=== PATIENT | female | born 1970 | race Caucasian/White ===

== ENCOUNTER 2016-10-13 21:46 | Emergency (ER) | payer BC, OTHER ==
[~2016-10-13] VITALS: Ht 170.2 cm; Wt 65.2 kg
[~2016-10-13 21:46] MED LIST: AMPH15CA7 PO; DIME1CAP2 PO; GABA1CAP5 PO; MAGNTAB10 PO; SERT100T PO; SERT50TA PO; VIT; VITBC PO; [UNRECOGNIZED DRUG - CODE] PO
[2016-10-13 21:49] VITALS: TEMP 37.3; Ht 170.2 cm; Wt 65.2 kg
[2016-10-13] MEDS ORDERED: ONDANSETRON INJ 2 MG/ML 2 ML VIAL IV STA (22:17)
[2016-10-13] MEDS ORDERED: KETOROLAC TROMETHAMINE 30 MG/ML VIAL IV STA (22:17)
[2016-10-13] MEDS ORDERED: SODIUM CHLORIDE 0.9% 1000ML 1,000 ML IV STA (22:17)
[2016-10-13] MEDS ORDERED: VLM5CL PO (22:37)
[2016-10-13] MEDS ORDERED: ZOLP10TA6 PO (22:37)
[2016-10-13] MEDS ORDERED: NRN400 PO (22:37)
[2016-10-13] MEDS ORDERED: ZLF/100 PO (22:37)
[2016-10-13] MEDS ORDERED: CHOL2000 PO (22:39)
[2016-10-13] MEDS ORDERED: CYAN10005 PO (22:39)
[2016-10-13] MEDS ORDERED: AMPH20TA2 PO ×2 (22:41)
[2016-10-13 23:03] LABS: HEMATOCRIT 37.7 % (37-47); MEAN CELL VOLUME 93.3 fL (80-100); MEAN CORPUSCULAR HEMOGLOBIN 32.4 pg (25-34); MEAN CORPUSCULAR HGB CONC 34.7 g/dl (32-36); MEAN PLATELET VOLUME 9.5 fL (7.4-10.4); PLATELET COUNT 223 K/uL (130-400); RED BLOOD COUNT 4.04 M/uL (4.2-5.4); WHITE BLOOD COUNT 8.56 K/uL (4.8-10.8)
[2016-10-13 23:07] LABS: URINE APPEARANCE CLOUDY (CLEAR); URINE BILIRUBIN NEG (NEG); URINE COLOR DK YELLOW; URINE NITRITE NEG (NEG); URINE PH 5.5 (4.5-7.5); URINE SPECIFIC GRAVITY 1.015 (1.000-1.030); UROBILINOGEN NEG (NEG)
[2016-10-13 23:15] LABS: MANUAL MICROSCOPIC REQUIRED? NO; REVIEW REQ? NO
[2016-10-13] MEDS ORDERED: CEFTRIAXONE SOD INJ 1 GM ADDVIAL IV STA (23:18)
[2016-10-13 23:25] LABS: BUN/CREATININE RATIO 16.3 (10-20); CREATININE 0.92 mg/dl (0.60-1.20); POTASSIUM 3.9 mmol/L (3.5-5.1); PREG INTERNAL NEGATIVE QC NEG CLEAR BACKGROUND; PREG INTERNAL POSITIVE QC POS CONTROL LINE
[2016-10-13 23:35] LABS: BASO % 0.1 %; BASO ABS # 0.01 K/uL (0-0.2); COMPLETE YES; EOS % 0.9 %; IG% 0.1 %; LYMPH % 12.1 %; LYMPH ABS # 1.04 K/uL (1.2-3.4); MONO % 8.4 %; NEUT % 78.4 %
[2016-10-14] MEDS ORDERED: CEPH500C2 PO (00:25)
[2016-10-14] MEDS ORDERED: CEPHALEXIN 500MG HOME PACK 1 EA BTL PO ONE (00:30)
--- NOTE | 2016-10-14 00:52 | EMERGENCY ROOM VISIT NOTE ---
History Report prepared by Vic: Tatyana Santo Under the Supervision of: Dr. Devan Haq D.O. First contact with patient: 21:53 Chief Complaint: URINARY SYMPTOMS Stated Complaint: FEVER,BACK PAIN,POSSIBLE UTI History of Present Illness The patient is a 46 year old female who presents to the Emergency Room with complaints of worsening urinary symptoms that started 2-3 days ago. The patient is experiencing intermittent cramping back pain and foul-smelling urine. She is also experiencing a fever that was first noticed around 1600 today and was recorded at 100. She denies pain or burning with urination, increased urinary frequency, increased urinary urgency. The patient developed left upper quadrant abdominal pain earlier today after taking 400 mg of ibuprofen. She has increased her fluid intake, but still felt like a UTI was coming on so she figured that she should get evaluated. The patient has a history of UTIs and pyelonephritis. She follows regularly with urology. The patient adds that when she had a UTI last July, there were some resistant bacteria present. She is unsure of if she has a history of kidney stones because she was told that she had one when she had her cholecystectomy done, but urology wasn't sure if that was true. Source of History: patient Onset: 2-3 days ago Quality: other (urinary symptoms) Timing: worsening Associated Symptoms: + abdominal pain (LUQ), + back pain (intermittent cramping), + fevers, + urinary symptoms (foul-smelling urine) Note: no pain or burning with urination, no increased urinary frequency, no increased urinary urgency Review of Systems See HPI for pertinent positives & negatives. A total of 10 systems reviewed and were otherwise negative. Past Medical & Surgical Medical Problems: (1) Cholecystitis (2) Fever (3) History of recurrent UTIs (4) Migraine headache (5) Multiple sclerosis (6) UTI (urinary tract infection) (7) Vertigo Surgical Problems: (1) History of appendectomy (2) History of cholecystectomy Family History FH: cancer FH: heart disease FH: hypertension Social History Smoking Status: Never Smoker Alcohol Use: none Marital Status: Occupation Status: unemployed Current/Historical Medications Scheduled Cephalexin Monohydrate (Keflex), 500 MG PO QID Cholecalciferol (Vitamin D3), 2,000 INTER.UNIT PO TID Cyanocobalamin (Vitamin B-12), 1,000 MCG PO DAILY Dimethyl Fumarate (Tecfidera), 240 MG PO BID Gabapentin (Gabapentin), 400 MG PO TID Magnesium Oxide (Mg Supplement (Mag-200), 250 MG PO TID Sertraline HCl (Sertraline HCl), 100 MG PO HS Vitamin B Complex (Vitamin B Complex), 1 TAB PO DAILY Scheduled PRN Amphetamine-Dextroamphetamine 20MG (Adderall 20MG), 20 MG PO QAM PRN for Focus Amphetamine-Dextroamphetamine 20MG (Adderall 20MG), 10 MG PO ATERNOON PRN for Focus Diazepam (Diazepam), 5 MG PO UD PRN for Migraine Zolpidem Tartrate (Zolpidem Tartrate), 10 MG PO HS PRN for Sleep Allergies Coded Allergies: Erythromycin (Unverified Adverse Reaction, Severe, GI SYMPTOMS, 07/16/15) Physical Exam Vital Signs Date Time Temp Pulse Resp B/P Pulse Ox O2 Delivery O2 Flow Rate FiO2 10/14/16 01:04 75 20 103/50 99 10/14/16 00:02 71 20 104/67 98 Room Air 10/13/16 21:49 37.3 107 16 102/38 97 Room Air Physical Exam GENERAL: Patient is awake, alert, and in no acute distress. Patient is resting comfortably and showing no signs of anxiety EYES: The conjunctivae are clear. The pupils are round and reactive. EARS, NOSE, MOUTH AND THROAT: The nose is without any evidence of any deformity. Mucous membranes are moist tongue is midline NECK: The neck is nontender and supple. RESPIRATORY: Normal respiratory effort is noted there is no evidence of wheezing rhonchi or rales CARDIOVASCULAR: Regular rate and rhythm noted there no murmurs rubs or gallops normal S1 normal S2 GASTROINTESTINAL: The abdomen is soft. Bowel sounds are present in all quadrants. Abdomen is tender in right upper quadrant. No guarding or rigidity noted. BACK: No midline tenderness or or step-off noted. Mild right CVA tenderness to percussion. MUSCULOSKELETAL/EXTREMITIES: There is no evidence of gross deformity full range of motion is noted in the hips and shoulders SKIN: There is no obvious evidence of any rash. There are no petechiae, pallor or cyanosis noted. NEUROLOGIC: Patient is awake alert and oriented x3 strength is symmetric patellar reflexes are 2+ bilaterally Medical Decision & Procedures ER Provider Diagnostic Interpretation: Radiology results as stated below per my review and radiologist interpretation: KUB X-RAY MY IMPRESSION: Nonspecific bowel gas pattern. Constipation noted in right colon. No free air. No signs of obstruction. Ultrasound of the retroperitoneum was obtained in the emergency department. The report was reviewed. Preliminary Findings Only See Final Report For Complete Findings US RENAL: Right kidney 12.8 cm in length. Left kidney 11.5 cm in length. No hydronephrosis is seen. The right proximal ureter is visualized and appears mildly distended. Measures up to 7 mm where visualized. Suspect some debris in bladder. Correlate for urinary tract infection/with UA. Right ureteral jet seen on Doppler imaging of bladder. Possible more diminutive left jet seen on one of the images of the bladder. Radiologist: Abdirahman Reed M.D. Study ready at 00:07 and initial results transmitted at 00:50 Laboratory Results 10/13/16 22:48 Red Blood Count 4.04, Mean Corpuscular Volume 93.3, Mean Corpuscular Hemoglobin 32.4, Mean Corpuscular Hemoglobin Concent 34.7, Mean Platelet Volume 9.5, Neutrophils (%) (Auto) 78.4, Lymphocytes (%) (Auto) 12.1, Monocytes (%) (Auto) 8.4, Eosinophils (%) (Auto) 0.9, Basophils (%) (Auto) 0.1, Neutrophils # (Auto) 6.70, Lymphocytes # (Auto) 1.04, Monocytes # (Auto) 0.72, Eosinophils # (Auto) 0.08, Basophils # (Auto) 0.01 10/13/16 22:48 Test 10/13/16 00:00 10/13/16 22:48 Urine Color DK YELLOW Urine Appearance CLOUDY (CLEAR) Urine pH 5.5 (4.5-7.5) Urine Specific [place] 1.015 (1.000-1.030) Urine Protein 2+ (NEG) Urine Glucose (UA) NEG (NEG) Urine Ketones NEG (NEG) Urine Occult Blood 1+ (NEG) Urine Nitrite NEG (NEG) Urine Bilirubin NEG (NEG) Urine Urobilinogen NEG (NEG) Urine Leukocyte Esterase LARGE (NEG) Urine WBC (Auto) >30 /hpf (0-5) Urine RBC (Auto) 0-4 /hpf (0-4) Urine Hyaline Casts (Auto) 1-5 /lpf (0-5) Urine Epithelial Cells (Auto) 10-20 /lpf (0-5) Urine Bacteria (Auto) 4+ (NEG) White Blood Count 8.56 K/uL (4.8-10.8) Red Blood Count 4.04 M/uL (4.2-5.4) Hemoglobin 13.1 g/dL (12.0-16.0) Hematocrit 37.7 % (37-47) Mean Corpuscular Volume 93.3 fL (80-100) Mean Corpuscular Hemoglobin 32.4 pg (25-34) Mean Corpuscular Hemoglobin Concent 34.7 g/dl (32-36) Platelet Count 223 K/uL (130-400) Mean Platelet Volume 9.5 fL (7.4-10.4) Neutrophils (%) (Auto) 78.4 % Lymphocytes (%) (Auto) 12.1 % Monocytes (%) (Auto) 8.4 % Eosinophils (%) (Auto) 0.9 % Basophils (%) (Auto) 0.1 % Neutrophils # (Auto) 6.70 K/uL (1.4-6.5) Lymphocytes # (Auto) 1.04 K/uL (1.2-3.4) Monocytes # (Auto) 0.72 K/uL (0.11-0.59) Eosinophils # (Auto) 0.08 K/uL (0-0.5) Basophils # (Auto) 0.01 K/uL (0-0.2) RDW Standard Deviation 42.6 fL (36.4-46.3) RDW Coefficient of Variation 12.5 % (11.5-14.5) Immature Granulocyte % (Auto) 0.1 % Immature Granulocyte # (Auto) 0.01 K/uL (0.00-0.02) Red Blood Cell Morphology Unremarkable Anion Gap 11.0 mmol/L (3-11) Est Creatinine Clear Calc Drug Dose 74.3 ml/min Estimated GFR () 86.5 Estimated GFR (Non- 74.7 BUN/Creatinine Ratio 16.3 (10-20) Calcium Level 9.0 mg/dl (8.5-10.1) Total Bilirubin 0.5 mg/dl (0.2-1) Direct Bilirubin 0.1 mg/dl (0-0.2) Aspartate Amino Transf (AST/SGOT) 12 U/L (15-37) Alanine Aminotransferase (ALT/SGPT) 21 U/L (12-78) Alkaline Phosphatase 47 U/L (45-117) Total Protein 7.1 gm/dl (6.4-8.2) Albumin 3.8 gm/dl (3.4-5.0) Lipase 123 U/L (73-393) Human Chorionic Gonadotropin, Qual NEG (NEG) Laboratory results per my review. Medications Administered Medications (Trade) Dose Ordered Sig/Liza Route Start Time Stop Time Status Last Admin Dose Admin Sodium Chloride (Nss 1000ml) 1,000 ml @ 999 mls/hr Q1H1M STAT IV 10/13/16 22:17 10/13/16 23:17 DC 10/13/16 22:17 999 MLS/HR Ceftriaxone Sodium (Rocephin Inj) 1 gm NOW STAT IV 10/13/16 23:18 10/13/16 23:19 DC 10/14/16 00:11 1 GM Cephalexin Monohydrate (Keflex 500MG Home Pack) 1 homepack NOW ONCE PO 10/14/16 00:30 10/14/16 00:31 DC 10/14/16 01:02 1 HOMEPACK ED Course 2155: The medical student evaluated the patient at this time. We discussed her findings and potential treatment plans. 2217: Ordered NSS 1,000 ml @ 999 mls/hr IV 2222: The patient was evaluated in room B6. A complete history and physical examination were performed. 2318: Ordered Rocephin Inj 1 gm IV 0021: I reassessed the patient. She is feeling well. 0030: Ordered Cephalexin Monohydrate 1 homepack PO 0055: Upon reevaluation, the patient is doing well. I discussed the results and treatment plan with her. She verbalized agreement of the treatment plan. She was discharged home. Medical Decision Prior records/ancillary studies reviewed. Triage Nursing notes reviewed. The patient's history was concerning for an urinary tract infection. Differential diagnosis: Etiologies such as renal colic, appendicitis, diverticulitis, mesenteric ischemia, aortic pathology, infections, inflammatory bowel disease, PUD, biliary pathology, UTI, as well as others were entertained. The patient is a 46-year-old female who presented to the emergency department for evaluation of dysuria and frequency. The patient has a history of MS. She has had multiple urinary tract infections in the past some of which have been complicated by upper urinary infection as well as multidrug resistant Escherichia coli. I reviewed the patient's most recent urine cultures. The patient was treated with IV fluids as well as IV Rocephin in the emergency department. On subsequent reevaluation she was feeling much better. She was encouraged to rest and avoid any strenuous activity. She was also encouraged to continue all medications as prescribed. He was also encouraged to follow-up with her primary care physician this week for reevaluation but return to the emergency department immediately if she develops worsening symptoms high fever severe nausea vomiting severe pain or if need arises. Impression Primary Impression: Urinary tract infection Scribe Attestation The scribe's documentation has been prepared under my direction and personally reviewed by me in its entirety. I confirm that the note above accurately reflects all work, treatment, procedures, and medical decision making performed by me. Departure Information Dispostion Home / Self-Care Prescriptions Cephalexin Monohydrate (KEFLEX) 500 Mg Cap 500 MG PO QID, #28 CAP Prov: Devan Haq DO 10/14/16 Referrals Josie Alanis DO (PCP) Forms HOME CARE DOCUMENTATION FORM, IMPORTANT VISIT INFORMATION Patient Instructions My [facility] Additional Instructions Continue all medications as prescribed. Drink plenty clear liquids. Call your family to schedule a follow-up appointment. Return to the emergency Department immediately if symptoms change worsen or if the need arises. Problem Qualifiers Primary Impression: Urinary tract infection Urinary tract infection type: site unspecified Hematuria presence: without hematuria Qualified Codes: N39.0 - Urinary tract infection, site not specified
[2016-10-14 01:04] VITALS: BP 103/50; PULSE 75; O2SAT 99
--- NOTE | 2016-10-14 07:03 | DIAGNOSTIC IMAGING REPORT ---
RENAL ULTRASOUND HISTORY: Flank pain flank pain, UTI S/S COMPARISON: None. FINDINGS: Right kidney: 12.8 cm maximum dimension. No evidence for hydronephrosis. Slight fullness right ureter Normal corticomedullary differentiation and cortical thickness. Left kidney: Maximum dimension 11.5 cm. No evidence for hydronephrosis. Normal corticomedullary differentiation and cortical thickness. Bladder: No bladder wall thickening. The bilateral ureteral jets were identified. IMPRESSION: Slight fullness proximal right ureter. Otherwise negative renal ultrasound Electronically signed by: Dany Malone M.D. 10/14/2016 7:01 AM Dictated Date/Time: 10/14/2016 7:00 AM
--- NOTE | 2016-10-14 07:48 | DIAGNOSTIC IMAGING REPORT ---
KUB CLINICAL HISTORY: flank pain COMPARISON STUDY: No previous studies for comparison. FINDINGS: The soft tissues, psoas shadows, renal outlines and intestinal gas pattern appear normal. There is no evidence for bowel obstruction. No abnormal abdominal calcifications are seen. IMPRESSION: Normal study. Electronically signed by: Dany Malone M.D. 10/14/2016 7:46 AM Dictated Date/Time: 10/14/2016 7:40 AM
--- NOTE | 2016-10-15 13:32 | Pharmacy Progress Note ---
ED Pharmacist Culture FollowUp Date of Service: Oct 15, 2016. Patient was sent home with a prescription for cephalexin, which should cover the E. coli growing from the patient's urine culture.
== END 2016-10-14 01:05 | disposition home or self-care (01) ==
LOC: C.EDB 21:47
DX: N39.0 Urinary tract infection, site not specified (principal); G35 Multiple sclerosis; G43.909 Migraine, unspecified, not intractable, without status migrainosus; Z79.899 Other long term (current) drug therapy

== ENCOUNTER 2016-10-30 22:04 | Emergency (ER) | payer BC ==
[~2016-10-30] VITALS: Ht 170.2 cm; Wt 66.0 kg
[~2016-10-30 22:04] MED LIST changes: -AMPH15CA7 PO; +AMPH20TA2 PO; +CHOL2000 PO; +CYAN10005 PO; -GABA1CAP5 PO; +NRN400 PO; -SERT100T PO; -SERT50TA PO; -VIT; +VLM5CL PO; +ZLF/100 PO; +ZOLP10TA6 PO; -[UNRECOGNIZED DRUG - CODE] PO
[2016-10-30 22:08] VITALS: Ht 170.2 cm; Wt 66.0 kg
--- NOTE | 2016-10-30 22:31 | EMERGENCY ROOM VISIT NOTE ---
History Report prepared by Vic: Bang Tariq Under the Supervision of: Dr. Oneal Holbrook D.O. First contact with patient: 22:19 Chief Complaint: CHEST PAIN Stated Complaint: CHEST PAIN History of Present Illness The patient is a 46 year old female who presents to the Emergency Room with complaints of waxing and waning central chest pain that began 40 minutes prior to arrival. The patient describes her pain as "sharp," and states that it is intermittently radiating up her neck and down her left arm. The pain in her left arm feels like "pins and needles" and does radiate all the way to her pinky finger. The patient was laying down when her pain onset, and was not exerting herself in anyway. The patient's states that the patient does have MS and commonly gets random bodily aches and pains, but never has never experienced chest pain like this in the past. She did take an Aspirin shortly after her pain onset. The patient notes that she is feeling improved at this time. She denies any back pain currently. The patient does have a significant family history of heart disease. Source of History: patient Onset: 40 minutes DIE MAKER TRIM Position: chest (central) Quality: sharp Timing: waxes/wanes Associated Symptoms: + neck pain, No back pain Note: Pain radiating down her left arm Review of Systems See HPI for pertinent positives and negatives. A total of ten systems were reviewed and were otherwise negative. Past Medical & Surgical Medical Problems: (1) Cholecystitis (2) Fever (3) History of recurrent UTIs (4) Migraine headache (5) Multiple sclerosis (6) UTI (urinary tract infection) (7) Vertigo Surgical Problems: (1) History of appendectomy (2) History of cholecystectomy Family History FH: cancer FH: heart disease FH: hypertension Social History Smoking Status: Never Smoker Alcohol Use: none Marital Status: Occupation Status: unemployed Current/Historical Medications Scheduled Cholecalciferol (Vitamin D3), 2,000 INTER.UNIT PO TID Cyanocobalamin (Vitamin B-12), 1,000 MCG PO DAILY Dimethyl Fumarate (Tecfidera), 240 MG PO BID Gabapentin (Gabapentin), 400 MG PO TID Magnesium Oxide (Mg Supplement (Mag-200), 250 MG PO TID Sertraline HCl (Sertraline HCl), 100 MG PO HS Vitamin B Complex (Vitamin B Complex), 1 TAB PO DAILY Scheduled PRN Amphetamine-Dextroamphetamine 20MG (Adderall 20MG), 20 MG PO QAM PRN for Focus Amphetamine-Dextroamphetamine 20MG (Adderall 20MG), 10 MG PO ATERNOON PRN for Focus Diazepam (Diazepam), 5 MG PO UD PRN for Migraine Zolpidem Tartrate (Zolpidem Tartrate), 10 MG PO HS PRN for Sleep Allergies Coded Allergies: Erythromycin (Verified Adverse Reaction, Severe, GI SYMPTOMS, 10/31/16) Physical Exam Vital Signs Date Time Temp Pulse Resp B/P Pulse Ox O2 Delivery O2 Flow Rate FiO2 10/30/16 23:20 64 18 113/60 95 Room Air 10/30/16 22:36 Room Air 10/30/16 22:36 Room Air 10/30/16 22:29 81 10/30/16 22:08 37.2 73 18 124/84 100 Room Air Physical Exam GENERAL: Awake, alert, well-appearing, in no distress HENT: Normocephalic, atraumatic. Oropharynx unremarkable. EYES: Normal conjunctiva. Sclera non-icteric. NECK: Supple. No nuchal rigidity. FROM. No JVD. RESPIRATORY: Clear to auscultation. CARDIAC: Regular rate, normal rhythm. Extremities warm and well perfused. Pulses equal. ABDOMEN: Soft, non-distended. No tenderness to palpation. No rebound or guarding. No masses. RECTAL: Deferred. MUSCULOSKELETAL: Chest examination reveals no tenderness. The back is symmetrical on inspection without obvious abnormality. There is no CVA tenderness to palpation. No joint edema. LOWER EXTREMITIES: Calves are equal size bilaterally and non-tender. No edema. No discoloration. NEURO: Normal sensorium. No sensory or motor deficits noted. SKIN: No rash or jaundice noted. Medical Decision & Procedures ER Provider Diagnostic Interpretation: X ray results as stated below per my interpretation and radiologist interpretation. Other radiology results as stated below per my review and radiologist interpretation CHEST ONE VIEW PORTABLE HISTORY: Atypical CHEST PAIN COMPARISON: Chest 07/17/2015. FINDINGS: The lungs are clear. Cardiac silhouette is normal in size. No pleural effusions. No pneumothorax. Cholecystectomy. IMPRESSION: No acute process. Electronically signed by: Jerome Kingston M.D. 10/30/2016 10:51 PM Dictated Date/Time: 10/30/2016 10:49 PM Laboratory Results 10/30/16 22:50 Red Blood Count 4.38, Mean Corpuscular Volume 92.9, Mean Corpuscular Hemoglobin 32.4, Mean Corpuscular Hemoglobin Concent 34.9, Mean Platelet Volume 9.5, Neutrophils (%) (Auto) 59.2, Lymphocytes (%) (Auto) 28.0, Monocytes (%) (Auto) 7.4, Eosinophils (%) (Auto) 4.8, Basophils (%) (Auto) 0.6, Neutrophils # (Auto) 3.06, Lymphocytes # (Auto) 1.45, Monocytes # (Auto) 0.38, Eosinophils # (Auto) 0.25, Basophils # (Auto) 0.03 10/30/16 22:50 Test 10/30/16 22:50 10/31/16 00:34 White Blood Count 5.17 K/uL (4.8-10.8) Red Blood Count 4.38 M/uL (4.2-5.4) Hemoglobin 14.2 g/dL (12.0-16.0) Hematocrit 40.7 % (37-47) Mean Corpuscular Volume 92.9 fL (80-100) Mean Corpuscular Hemoglobin 32.4 pg (25-34) Mean Corpuscular Hemoglobin Concent 34.9 g/dl (32-36) Platelet Count 337 K/uL (130-400) Mean Platelet Volume 9.5 fL (7.4-10.4) Neutrophils (%) (Auto) 59.2 % Lymphocytes (%) (Auto) 28.0 % Monocytes (%) (Auto) 7.4 % Eosinophils (%) (Auto) 4.8 % Basophils (%) (Auto) 0.6 % Neutrophils # (Auto) 3.06 K/uL (1.4-6.5) Lymphocytes # (Auto) 1.45 K/uL (1.2-3.4) Monocytes # (Auto) 0.38 K/uL (0.11-0.59) Eosinophils # (Auto) 0.25 K/uL (0-0.5) Basophils # (Auto) 0.03 K/uL (0-0.2) RDW Standard Deviation 41.4 fL (36.4-46.3) RDW Coefficient of Variation 12.2 % (11.5-14.5) Immature Granulocyte % (Auto) 0.0 % Immature Granulocyte # (Auto) 0.00 K/uL (0.00-0.02) Anion Gap 9.0 mmol/L (3-11) Est Creatinine Clear Calc Drug Dose 88.8 ml/min Estimated GFR () 107.3 Estimated GFR (Non- 92.6 BUN/Creatinine Ratio 20.5 (10-20) Calcium Level 9.3 mg/dl (8.5-10.1) Total Bilirubin 0.2 mg/dl (0.2-1) Direct Bilirubin < 0.1 mg/dl (0-0.2) Aspartate Amino Transf (AST/SGOT) 15 U/L (15-37) Alanine Aminotransferase (ALT/SGPT) 19 U/L (12-78) Alkaline Phosphatase 55 U/L (45-117) Total Protein 8.0 gm/dl (6.4-8.2) Albumin 4.4 gm/dl (3.4-5.0) Bedside Troponin I 0.000 ng/ml (0-0.045) Laboratory results reviewed by me ECG Indication: chest pain Rate (beats per minute): 60 Rhythm: normal sinus Findings: no acute ischemic change, no ectopy ED Course 2221: The patient was evaluated in room C12. A complete history and physical exam was performed. 2239: Ordered Dilaudid 1 mg 2334: I checked on the patient at this time, her chest pain has resolved. She is in bed smiling, vitals are within normal limits. 0045: I reevaluated the patient. She was resting in bed comfortably Discussed results and discharge instructions: she verbalized understanding and agreement. The patient is ready for discharge. Medical Decision Differential diagnosis: Etiologies such as cardiac ischemia, aortic dissection, pulmonary embolism, pneumonia, pneumothorax, musculoskeletal, infections, pericarditis, myocarditis , esophageal rupture, gastrointestinal, as well as others were entertained. Patient on reexamination 1:30 addressing her distress no current chest pain. Patient has 2 normal troponins. Patient's heart scores very low I do not suspect acute coronary syndrome thoracic aortic dissection pulmonary embolism or a cardiac event at this time. I have discussed the workup with the patient and patient's at bedside Impression Primary Impression: Non-cardiac chest pain Additional Impression: Multiple sclerosis Scribe Attestation The scribe's documentation has been prepared under my direction and personally reviewed by me in its entirety. I confirm that the note above accurately reflects all work, treatment, procedures, and medical decision making performed by me. Departure Information Dispostion Home / Self-Care Referrals Josie Alanis DO (PCP) Patient Instructions ED Chest Pain Atypical [place], My [facility] Additional Instructions Follow-up with her primary care physician. Return for worsening pain or any concerns Problem Qualifiers
[2016-10-30] MEDS ORDERED: HYDROmorphone INJ 1 MG/ML SYR ONE (22:39)
--- NOTE | 2016-10-30 22:52 | DIAGNOSTIC IMAGING REPORT ---
CHEST ONE VIEW PORTABLE HISTORY: Atypical CHEST PAIN COMPARISON: Chest 07/17/2015. FINDINGS: The lungs are clear. Cardiac silhouette is normal in size. No pleural effusions. No pneumothorax. Cholecystectomy. IMPRESSION: No acute process. Electronically signed by: Jerome Kingston M.D. 10/30/2016 10:51 PM Dictated Date/Time: 10/30/2016 10:49 PM
[2016-10-30 23:18] LABS: BASO % 0.6 %; BASO ABS # 0.03 K/uL (0-0.2); COMPLETE YES; EOS % 4.8 %; HEMATOCRIT 40.7 % (37-47); LYMPH ABS # 1.45 K/uL (1.2-3.4); MEAN CELL VOLUME 92.9 fL (80-100); MEAN CORPUSCULAR HEMOGLOBIN 32.4 pg (25-34); MEAN CORPUSCULAR HGB CONC 34.9 g/dl (32-36); MEAN PLATELET VOLUME 9.5 fL (7.4-10.4); MONO % 7.4 %; NEUT % 59.2 %; PLATELET COUNT 337 K/uL (130-400); RED BLOOD COUNT 4.38 M/uL (4.2-5.4); WHITE BLOOD COUNT 5.17 K/uL (4.8-10.8)
[2016-10-30 23:21] LABS: ALT/SGPT 19 U/L (12-78); BLOOD UREA NITROGEN 16 mg/dl (7-18); BUN/CREATININE RATIO 20.5 (10-20); CALCIUM 9.3 mg/dl (8.5-10.1); CARBON DIOXIDE 29 mmol/L (21-32); CHLORIDE 104 mmol/L (98-107); CREATININE 0.77 mg/dl (0.60-1.20); GLUCOSE 87 mg/dl (70-99); POTASSIUM 3.7 mmol/L (3.5-5.1); SODIUM 142 mmol/L (136-145)
[2016-10-30 23:24] LABS: ALKALINE PHOSPHATASE 55 U/L (45-117); AST/SGOT 15 U/L (15-37)
[2016-10-31 01:40] VITALS: BP 110/59; PULSE 68; TEMP 37.2; O2SAT 95
== END 2016-10-31 01:54 | disposition home or self-care (01) ==
LOC: C.EDB 22:05 → C.EDC 10-31 01:54
DX: R07.89 Other chest pain (principal); G35 Multiple sclerosis; Z82.49 Family history of ischemic heart disease and other diseases of the circulatory system; Z90.49 Acquired absence of other specified parts of digestive tract; Z90.89 Acquired absence of other organs; Z80.9 Family history of malignant neoplasm, unspecified; Z88.1 Allergy status to other antibiotic agents

== ENCOUNTER → 2017-06-09 | Outpatient (CLI) | payer BC | END | disposition home or self-care (01) | LOC: C.LABSPEC 17:18 | PROVIDERS: ATTEND Nurse Practitioner Family | DX: N39.0 Urinary tract infection, site not specified (principal) ==

== ENCOUNTER → 2017-11-09 | Outpatient (CLI) | payer OTHER ==
[2017-11-09 16:55] LABS: BASO % 0.3 %; BASO ABS # 0.02 K/uL (0-0.2); EOS % 1.6 %; HEMATOCRIT 42.3 % (37-47); HEMOGLOBIN 14.9 g/dL (12.0-16.0); IG# 0.01 K/uL (0.00-0.02); LYMPH % 18.9 %; LYMPH ABS # 1.21 K/uL (1.2-3.4); MEAN CELL VOLUME 96.1 fL (80-100); MEAN CORPUSCULAR HEMOGLOBIN 33.9 pg (25-34); MEAN CORPUSCULAR HGB CONC 35.2 g/dl (32-36); MEAN PLATELET VOLUME 9.9 fL (7.4-10.4); MONO % 7.2 %; MONO ABS # 0.46 K/uL (0.11-0.59); NEUT % 71.8 %; NEUT ABS # 4.59 K/uL (1.4-6.5); PLATELET COUNT 250 K/uL (130-400); RED CELL DISTRIBUTION WIDTH CV 12.2 % (11.5-14.5); RED CELL DISTRIBUTION WIDTH SD 42.7 fL (36.4-46.3); WHITE BLOOD COUNT 6.39 K/uL (4.8-10.8)
[2017-11-09 17:11] LABS: ALBUMIN 4.2 gm/dl (3.4-5.0); ALT/SGPT 20 U/L (12-78); BLOOD UREA NITROGEN 12 mg/dl (7-18); CALCIUM 9.4 mg/dl (8.5-10.1); CARBON DIOXIDE 30 mmol/L (21-32); CREATININE 0.74 mg/dl (0.60-1.20); GLUCOSE 86 mg/dl (70-99); POTASSIUM 3.9 mmol/L (3.5-5.1); SODIUM 138 mmol/L (136-145)
[2017-11-09 17:22] LABS: ALKALINE PHOSPHATASE 54 U/L (45-117); AST/SGOT 15 U/L (15-37); TOTAL PROTEIN 7.7 gm/dl (6.4-8.2)
== END | disposition home or self-care (01) ==
LOC: C.LABBC 14:08
PROVIDERS: ATTEND Nurse Practitioner Family
DX: E55.9 Vitamin D deficiency, unspecified (principal); G35 Multiple sclerosis; R00.0 Tachycardia, unspecified; R00.2 Palpitations